=== PATIENT | male | born 1950 | race Caucasian/White ===

== ENCOUNTER 2016-10-04 10:50 | Outpatient (CLI) | payer MEDICARE, OTHER | END 2016-10-04 10:51 | disposition home or self-care (01) | DX: E11.9 Type 2 diabetes mellitus without complications (principal); I10 Essential (primary) hypertension; E78.5 Hyperlipidemia, unspecified ==

== ENCOUNTER 2017-01-13 20:15 | Outpatient (CLI) | payer MEDICARE, OTHER ==
[2017-01-13 19:27] LABS: HEMOGLOBIN A1C 0.74 g/dL
== END 2017-01-13 20:16 | disposition home or self-care (01) ==
LOC: LAB.WCP 20:15
PROVIDERS: ATTEND Family Medicine
DX: E11.9 Type 2 diabetes mellitus without complications (principal)
CPT/HCPCS: 36415; 83036

== ENCOUNTER 2017-05-04 08:00 | Outpatient (CLI) | payer MEDICARE, OTHER ==
[2017-05-04 13:04] LABS: ALBUMIN/GLOBULIN RATIO 1.6 (1.0-2.2); BILIRUBIN,TOTAL 0.6 mg/dL (0.2-1.0); BUN - BLOOD UREA NITROGEN 24 mg/dL (6-20); CALCIUM 9.6 mg/dL (8.5-10.3); CARBON DIOXIDE - CO2 26 mmol/L (21-32); CHLORIDE 104 mmol/L (101-111); CHOL/HDL RATIO 3.7 (<5.0); CHOLESTEROL 146 mg/dL; CREATININE 1.1 mg/dL (0.6-1.2); GFR - MDRD 67 (>89); GLUCOSE 132 mg/dL (70-100); HDL CHOLESTEROL 40 mg/dL; LDL/HDL RATIO 2.1 (<3.6); POTASSIUM 4.5 mmol/L (3.5-5.0); SODIUM 137 mmol/L (135-145); TOTAL PROTEIN 7.6 g/dL (6.7-8.2); TRIGLYCERIDES 122 mg/dL; VLDL CHOLESTEROL 24 mg/dL
[2017-05-04 13:12] LABS: HEMOGLOBIN A1C 0.82 g/dL
== END 2017-05-04 08:01 | disposition home or self-care (01) ==
LOC: LAB.WCP 08:00
PROVIDERS: ATTEND Family Medicine
DX: E11.9 Type 2 diabetes mellitus without complications (principal); Z79.4 Long term (current) use of insulin; Z12.5 Encounter for screening for malignant neoplasm of prostate; I10 Essential (primary) hypertension; E78.5 Hyperlipidemia, unspecified; Z79.899 Other long term (current) drug therapy
CPT/HCPCS: 36415; 80053; 80061; 82043; 83036; G0103; 84153

== ENCOUNTER 2017-09-21 08:00 | Outpatient (CLI) | payer MEDICARE, OTHER ==
[2017-09-21 13:18] LABS: CALCIUM 9.3 mg/dL (8.5-10.3); CREATININE 1.4 mg/dL (0.6-1.2)
[2017-09-21 13:36] LABS: HB2 TOTAL 14.7 g/dL; HEMOGLOBIN A1C 0.77 g/dL; HEMOGLOBIN A1C % 6.9 % (4.6-6.2)
== END 2017-09-21 08:01 ==
LOC: LAB.WCP 08:00
PROVIDERS: ATTEND Family Medicine
DX: E11.9 Type 2 diabetes mellitus without complications (principal); I10 Essential (primary) hypertension
CPT/HCPCS: 36415; 80048; 83036

== ENCOUNTER 2017-10-19 08:00 | Outpatient (CLI) | payer MEDICARE, OTHER ==
[2017-10-19 12:55] LABS: CALCIUM 9.9 mg/dL (8.5-10.3); CREATININE 1.1 mg/dL (0.6-1.2)
== END 2017-10-19 08:01 | disposition home or self-care (01) ==
LOC: LAB.WCP 08:00
PROVIDERS: ATTEND Family Medicine
DX: E11.9 Type 2 diabetes mellitus without complications (principal); I10 Essential (primary) hypertension
CPT/HCPCS: 36415; 80048

== ENCOUNTER 2018-03-21 08:41 | Outpatient (CLI) | payer MEDICARE, OTHER ==
[2018-03-21 12:41] LABS: PSA FREE 0.74 ng/mL (0.16-2.81)
[2018-03-21 12:42] LABS: PSA TOTAL 2.63 ng/mL (0.000-2.000)
[2018-03-21 12:51] LABS: ALBUMIN 4.8 g/dL (3.2-5.5); ALBUMIN/GLOBULIN RATIO 1.5 (1.0-2.2); ALKALINE PHOSPHATASE 32 IU/L (42-121); ALT ALANINE AMINOTRANSFERASE 27 IU/L (10-60); AST ASPARTATE AMINOTRANSFERASE 24 IU/L (10-42); BILIRUBIN,TOTAL 0.7 mg/dL (0.2-1.0); BUN - BLOOD UREA NITROGEN 28 mg/dL (6-20); CALCIUM 10.1 mg/dL (8.5-10.3); CARBON DIOXIDE - CO2 28 mmol/L (21-32); CHLORIDE 103 mmol/L (101-111); CHOL/HDL RATIO 3.9 (<5.0); CHOLESTEROL 158 mg/dL; CREATININE 1.1 mg/dL (0.6-1.2); GFR - MDRD 66 (>89); GLUCOSE 145 mg/dL (70-100); HDL CHOLESTEROL 41 mg/dL; LDL CHOLESTEROL,CALCULATED 93 mg/dL; LDL/HDL RATIO 2.3 (<3.6); SODIUM 139 mmol/L (135-145); TOTAL PROTEIN 7.9 g/dL (6.7-8.2); VLDL CHOLESTEROL 24 mg/dL
[2018-03-21 13:02] LABS: HB2 TOTAL 15.5 g/dL; HEMOGLOBIN A1C 0.82 g/dL
== END 2018-03-21 08:42 | disposition home or self-care (01) ==
LOC: LAB.WCP 08:41
PROVIDERS: ATTEND Family Medicine
DX: N28.9 Disorder of kidney and ureter, unspecified (principal); E78.5 Hyperlipidemia, unspecified; E11.9 Type 2 diabetes mellitus without complications; I10 Essential (primary) hypertension; R97.20 Elevated prostate specific antigen [PSA]
CPT/HCPCS: 36415; 80053; 80061; 82043; 83036; 83721; 84154

== ENCOUNTER 2018-10-04 08:27 | Outpatient (CLI) | payer MEDICARE, OTHER ==
[2018-10-04 15:51] LABS: ALBUMIN 4.6 g/dL (3.2-5.5); ALBUMIN/GLOBULIN RATIO 1.4 (1.0-2.2); BILIRUBIN,TOTAL 0.8 mg/dL (0.2-1.0); CALCIUM 10.2 mg/dL (8.5-10.3); CREATININE 1.1 mg/dL (0.6-1.2); TOTAL PROTEIN 7.9 g/dL (6.7-8.2)
[2018-10-04 15:54] LABS: PSA FREE 0.494 ng/mL (0.16-2.81)
[2018-10-04 15:55] LABS: PSA TOTAL 1.816 ng/mL (0.000-2.000)
[2018-10-04 16:25] LABS: HB2 TOTAL 15.2 g/dL; HEMOGLOBIN A1C 0.91 g/dL; HEMOGLOBIN A1C % 7.6 % (4.6-6.2)
== END 2018-10-04 08:28 | disposition home or self-care (01) ==
LOC: LAB.WCP 08:27
PROVIDERS: ATTEND Family Medicine
DX: G25.0 Essential tremor (principal); E11.9 Type 2 diabetes mellitus without complications; N40.0 Benign prostatic hyperplasia without lower urinary tract symptoms; I10 Essential (primary) hypertension
CPT/HCPCS: 36415; 80053; 82043; 83036; 84153; 84154

== ENCOUNTER 2019-04-18 09:30 | Outpatient (CLI) | payer MEDICARE, OTHER ==
[2019-04-18 12:45] LABS: BASOPHILS % (AUTO) 0.7 %; EOSINOPHILS # (AUTO) 0.2 10^3/uL (0.0-0.7); HGB - HEMOGLOBIN 13.4 g/dL (14.0-18.0); LYMPHOCYTES # (AUTO) 1.4 10^3/uL (1.5-3.5); LYMPHOCYTES % (AUTO) 33.8 %; MEAN CORPUSCULAR HEMOGLOBIN 28.2 pg (27.0-31.0); MEAN CORPUSCULAR HGB CONC 31.5 g/dL (32.0-36.0); MEAN CORPUSCULAR VOLUME 89.7 fL (80.0-94.0); MEAN PLATELET VOLUME 11.5 fL (7.4-11.4); MONOCYTES # (AUTO) 0.3 10^3/uL (0.0-1.0); MONOCYTES % (AUTO) 7.9 %; NEUTROPHILS # (AUTO) 2.2 10^3/uL (1.5-6.6); NEUTROPHILS % (AUTO) 53.4 %; PLT - PLATELET COUNT 192 10^3/uL (130-450); RED BLOOD COUNT 4.75 10^6/uL (4.70-6.10); RED CELL DISTRIBUTION WIDTH 13.5 % (12.0-15.0); WHITE BLOOD COUNT 4.2 x10^3/uL (4.8-10.8)
[2019-04-18 13:00] LABS: ALBUMIN 4.5 g/dL (3.2-5.5); ALBUMIN/GLOBULIN RATIO 1.4 (1.0-2.2); ALKALINE PHOSPHATASE 42 IU/L (42-121); ALT ALANINE AMINOTRANSFERASE 23 IU/L (10-60); AST ASPARTATE AMINOTRANSFERASE 23 IU/L (10-42); BILIRUBIN,TOTAL 0.6 mg/dL (0.2-1.0); BUN - BLOOD UREA NITROGEN 27 mg/dL (6-20); CALCIUM 9.6 mg/dL (8.5-10.3); CARBON DIOXIDE - CO2 28 mmol/L (21-32); CHLORIDE 107 mmol/L (101-111); CHOL/HDL RATIO 3.9 (<5.0); CHOLESTEROL 159 mg/dL; CREATININE 0.9 mg/dL (0.6-1.2); GFR - MDRD 83 (>89); GLUCOSE 150 mg/dL (70-100); HB2 TOTAL 13.9 g/dL; HDL CHOLESTEROL 41 mg/dL; HEMOGLOBIN A1C 0.8 g/dL; HEMOGLOBIN A1C % 7.4 % (4.6-6.2); LDL CHOLESTEROL,CALCULATED 102 mg/dL; LDL/HDL RATIO 2.5 (<3.6); SODIUM 139 mmol/L (135-145); TOTAL PROTEIN 7.7 g/dL (6.7-8.2); VLDL CHOLESTEROL 16 mg/dL
[2019-04-18 13:34] LABS: CREATININE,URINE 56.6 mg/dL
[2019-04-18 13:35] LABS: TOTAL PROTEIN,URINE TIMED < 6 mg/dL
== END 2019-04-18 23:59 | disposition home or self-care (01) ==
LOC: LAB.WCP 09:30
PROVIDERS: ATTEND Family Medicine
DX: E11.9 Type 2 diabetes mellitus without complications (principal); N28.9 Disorder of kidney and ureter, unspecified; E78.5 Hyperlipidemia, unspecified; I10 Essential (primary) hypertension
CPT/HCPCS: 36415; 80053; 80061; 82570; 83036; 83721; 84156; 84443; 85025

== ENCOUNTER 2019-09-27 08:00 | Outpatient (CLI) | payer MEDICARE, OTHER ==
[2019-09-27 11:58] LABS: CREATININE,URINE 111.9 mg/dL; MICROALBUM/CREATININE RATIO,UR 10.7 ug/mg (<30.0); MICROALBUMIN,URINE 1.2 mg/dL (0-300.0)
[2019-09-27 12:02] LABS: CALCIUM 9.2 mg/dL (8.5-10.3); CREATININE 1.2 mg/dL (0.6-1.2)
[2019-09-27 13:10] LABS: HB2 TOTAL 14.6 g/dL; HEMOGLOBIN A1C 0.85 g/dL; HEMOGLOBIN A1C % 7.5 % (4.6-6.2)
== END 2019-09-27 23:59 | disposition home or self-care (01) ==
LOC: LAB.WCP 08:00
PROVIDERS: ATTEND Family Medicine
DX: K58.9 Irritable bowel syndrome, unspecified (principal); E11.9 Type 2 diabetes mellitus without complications; I10 Essential (primary) hypertension; E78.5 Hyperlipidemia, unspecified; N40.0 Benign prostatic hyperplasia without lower urinary tract symptoms
CPT/HCPCS: 36415; 80048; 82043; 82570; 83036

== ENCOUNTER 2020-01-28 08:00 | Outpatient (CLI) | payer MEDICARE, OTHER ==
[2020-01-28 12:10] LABS: BASOPHILS % (AUTO) 0.8 %; EOSINOPHILS # (AUTO) 0.2 10^3/uL (0.0-0.7); EOSINOPHILS % (AUTO) 4.6 %; HGB - HEMOGLOBIN 14.1 g/dL (14.0-18.0); LYMPHOCYTES # (AUTO) 1.6 10^3/uL (1.5-3.5); LYMPHOCYTES % (AUTO) 31.2 %; MEAN CORPUSCULAR HEMOGLOBIN 28.8 pg (27.0-31.0); MEAN CORPUSCULAR HGB CONC 31.8 g/dL (32.0-36.0); MEAN CORPUSCULAR VOLUME 90.6 fL (80.0-94.0); MEAN PLATELET VOLUME 11.7 fL (7.4-11.4); MONOCYTES # (AUTO) 0.4 10^3/uL (0.0-1.0); MONOCYTES % (AUTO) 7.4 %; NEUTROPHILS # (AUTO) 2.8 10^3/uL (1.5-6.6); NEUTROPHILS % (AUTO) 55.8 %; PLT - PLATELET COUNT 161 10^3/uL (130-450); RED CELL DISTRIBUTION WIDTH 12.8 % (12.0-15.0)
[2020-01-28 12:52] LABS: ALBUMIN 4.6 g/dL (3.2-5.5); ALKALINE PHOSPHATASE 39 IU/L (42-121); ALT ALANINE AMINOTRANSFERASE 21 IU/L (10-60); AST ASPARTATE AMINOTRANSFERASE 18 IU/L (10-42); BILIRUBIN,TOTAL 0.6 mg/dL (0.2-1.0); BUN - BLOOD UREA NITROGEN 24 mg/dL (6-20); CALCIUM 9.6 mg/dL (8.5-10.3); CARBON DIOXIDE - CO2 28 mmol/L (21-32); CHLORIDE 104 mmol/L (101-111); CREATININE 0.9 mg/dL (0.6-1.2); GLUCOSE 150 mg/dL (70-100); SODIUM 140 mmol/L (135-145); TOTAL PROTEIN 7.2 g/dL (6.7-8.2)
[2020-01-28 12:53] LABS: ALBUMIN/GLOBULIN RATIO 1.8 (1.0-2.2); CHOL/HDL RATIO 4.5 (<5.0); CHOLESTEROL 156 mg/dL; HB2 TOTAL 15.1 g/dL; HDL CHOLESTEROL 35 mg/dL; HEMOGLOBIN A1C 0.82 g/dL; HEMOGLOBIN A1C % 7.1 % (4.6-6.2); LDL CHOLESTEROL,CALCULATED 78 mg/dL; LDL/HDL RATIO 2.2 (<3.6); VLDL CHOLESTEROL 43 mg/dL
[2020-01-28 12:58] LABS: CREATININE,URINE 142.9 mg/dL; MICROALBUM/CREATININE RATIO,UR 15.4 ug/mg (<30.0); MICROALBUMIN,URINE 2.2 mg/dL (0-300.0)
== END 2020-01-28 23:59 | disposition home or self-care (01) ==
LOC: LAB.WCP 08:00
PROVIDERS: ATTEND Family Medicine
DX: D48.5 Neoplasm of uncertain behavior of skin (principal); E11.9 Type 2 diabetes mellitus without complications
CPT/HCPCS: 36415; 80053; 80061; 82043; 82570; 83036; 83721; 84443; 85025

== ENCOUNTER 2020-07-03 11:16 | Outpatient (CLI) | payer MEDICARE, OTHER ==
--- NOTE | 2020-07-03 17:17 | XRAY Report ---
PROCEDURE: Lumbar Spine Complete INDICATIONS: LOW BACK PAIN TECHNIQUE: 4 views of the lumbar spine were acquired. COMPARISON: None. FINDINGS: Bones: 5 [id number] vertebrae are present. There is trace retrolisthesis of L2 on L3, L3 on L4 , L4-5 and L5 on S1. There is moderate to severe foraminal narrowing at L4-5 and L5-S1. Partially hteresa dging anterior osteophytes are present at L1-L2 as well as L2-3. Mild to moderate multilevel degenera tive disc space narrowing is also present throughout the lumbar spine. No vertebral body compression fractures. No suspicious bony lesions. Soft tissues: Overlying bowel gas pattern is normal. No suspicious soft tissue calcifications. IMPRESSION: Degenerative changes most notable at L4-5 and L5-S1 as above. Reviewed by: Yasmeen Freeman MD on 07/03/2020 5:15 PM PST Approved by: Yasmeen Freeman MD on 07/03/2020 5:15 PM PST Station ID: [id number]
== END 2020-07-03 11:17 | disposition home or self-care (01) ==
LOC: DI 11:16
PROVIDERS: ATTEND Physical Medicine & Rehabilitation
DX: M47.817 Spondylosis without myelopathy or radiculopathy, lumbosacral region (principal)

== ENCOUNTER 2020-07-09 08:00 | Outpatient (CLI) | payer MEDICARE, OTHER ==
[2020-07-09 12:07] LABS: HEMOGLOBIN A1c% 7.3 % (4.27-6.07)
[2020-07-09 12:21] LABS: CALCIUM 10.5 mg/dL (8.5-10.3)
== END 2020-07-09 23:59 | disposition home or self-care (01) ==
LOC: LAB.WCP 08:00
PROVIDERS: ATTEND Nurse Practitioner Family
DX: E11.9 Type 2 diabetes mellitus without complications (principal)
CPT/HCPCS: 36415; 80048; 83036

== ENCOUNTER 2021-02-12 09:56 | Outpatient (CLI) | payer MEDICARE, OTHER ==
[2021-02-12 11:43] LABS: BASOPHILS % (AUTO) 0.7 %; EOSINOPHILS # (AUTO) 0.2 10^3/uL (0.0-0.7); EOSINOPHILS % (AUTO) 4.1 %; HCT - HEMATOCRIT 43.1 % (42.0-52.0); HGB - HEMOGLOBIN 14.1 g/dL (14.0-18.0); LYMPHOCYTES # (AUTO) 1.4 10^3/uL (1.5-3.5); LYMPHOCYTES % (AUTO) 32.9 %; MEAN CORPUSCULAR HGB CONC 32.7 g/dL (32.0-36.0); MEAN CORPUSCULAR VOLUME 91.7 fL (80.0-94.0); MEAN PLATELET VOLUME 11.2 fL (7.4-11.4); MONOCYTES # (AUTO) 0.3 10^3/uL (0.0-1.0); MONOCYTES % (AUTO) 7.7 %; NEUTROPHILS # (AUTO) 2.3 10^3/uL (1.5-6.6); NEUTROPHILS % (AUTO) 54.4 %; PLT - PLATELET COUNT 165 10^3/uL (130-450); RED CELL DISTRIBUTION WIDTH 12.5 % (12.0-15.0); WHITE BLOOD COUNT 4.1 x10^3/uL (4.8-10.8)
[2021-02-12 12:31] LABS: ALBUMIN 4.7 g/dL (3.2-5.5); ALBUMIN/GLOBULIN RATIO 1.6 (1.0-2.2); ALKALINE PHOSPHATASE 48 IU/L (42-121); ALT ALANINE AMINOTRANSFERASE 23 IU/L (10-60); AST ASPARTATE AMINOTRANSFERASE 18 IU/L (10-42); BILIRUBIN,TOTAL 0.9 mg/dL (0.2-1.0); BUN - BLOOD UREA NITROGEN 26 mg/dL (6-20); CALCIUM 9.8 mg/dL (8.5-10.3); CARBON DIOXIDE - CO2 28 mmol/L (21-32); CHLORIDE 104 mmol/L (101-111); CHOL/HDL RATIO 4.4 (<5.0); CHOLESTEROL 181 mg/dL; GFR - MDRD 73 (>89); GLUCOSE 146 mg/dL (70-100); HDL CHOLESTEROL 41 mg/dL; LDL CHOLESTEROL,CALCULATED 110 mg/dL; LDL/HDL RATIO 2.7 (<3.6); POTASSIUM 5.1 mmol/L (3.5-5.0); SODIUM 141 mmol/L (135-145); TOTAL PROTEIN 7.6 g/dL (6.7-8.2); TRIGLYCERIDES 149 mg/dL; VLDL CHOLESTEROL 30 mg/dL
[2021-02-12 12:35] LABS: THYROID STIMULATING HORMONE 0.91 uIU/mL (0.34-5.60)
[2021-02-12 13:02] LABS: ESTIMATED AVERAGE GLUCOSE 163 mg/dL (70-100); HEMOGLOBIN A1c% 7.3 % (4.27-6.07)
== END 2021-02-12 23:59 | disposition home or self-care (01) ==
LOC: LAB.WCP 09:56
PROVIDERS: ATTEND Family Medicine
DX: N28.9 Disorder of kidney and ureter, unspecified (principal); E11.9 Type 2 diabetes mellitus without complications; I10 Essential (primary) hypertension; E78.5 Hyperlipidemia, unspecified
CPT/HCPCS: 36415; 80053; 80061; 83036; 83721; 84443; 85025

== ENCOUNTER 2021-02-24 08:00 | Outpatient (CLI) | payer MEDICARE, OTHER | END 2021-02-24 23:59 | disposition home or self-care (01) | LOC: LAB.S 08:00 | PROVIDERS: ATTEND Family Medicine | DX: R97.20 Elevated prostate specific antigen [PSA] (principal) | CPT/HCPCS: 36415; G0103; 84153 ==

== ENCOUNTER 2021-05-22 06:25 | Day surgery (SDC) | payer MEDICARE, OTHER ==
[2021-05-22] MEDS ORDERED: LACTATED RINGERS 1,000 ML IV ONE ×2 (06:49→08:15)
--- NOTE | 2021-05-22 07:15 | ANESTHESIA ---
Pre-Anesthesia VS, & Labs - Diagnosis screening - Procedure colonoscopy Vital Signs: Temp Pulse Resp BP Pulse Ox 36.2 C L 82 17 146/91 H 97 05/22/21 06:39 05/22/21 06:39 05/22/21 06:39 05/22/21 06:39 05/22/21 06:39 Height: 6 ft 3 in Weight (kg): 96.4 kg Body Mass Index: 26.5 BMI Classification: Overweight - NPO >8 hours - Lab Results Current Lab Results: Laboratory Tests 05/22/21 06:47: POC Whole Bld Glucose 139 H Lab results reviewed: Yes Home Medications and Allergies Home Medications: Ambulatory Orders Aspirin [Opelika Aspirin] 1 tab PO DAILY 05/21/21 Cholecalciferol (Vitamin D3) [Vitamin D3] 1 cap PO DAILY 05/21/21 Insulin Aspart [NovoLOG] 1 unit SQ PRN PRN 05/21/21 Insulin Glargine [Lantus Solostar] 50 units SQ DAILY 05/21/21 Lisinopril [Zestril] 1 tab PO DAILY 05/21/21 Simvastatin [Zocor] 0.5 tab PO DAILY 05/21/21 Tamsulosin [Flomax] 1 cap PO DAILY 05/21/21 Ubidecarenone [Co Q-10] 1 cap PO DAILY 05/21/21 metFORMIN [Glucophage] 3 tab PO DAILY 05/21/21 Aspirin [Opelika Aspirin] 1 tab PO DAILY 05/21/21 Cholecalciferol (Vitamin D3) [Vitamin D3] 1 cap PO DAILY 05/21/21 Insulin Aspart [NovoLOG] 1 unit SQ PRN PRN 05/21/21 Insulin Glargine [Lantus Solostar] 50 units SQ DAILY 05/21/21 Lisinopril [Zestril] 1 tab PO DAILY 05/21/21 Simvastatin [Zocor] 0.5 tab PO DAILY 05/21/21 Tamsulosin [Flomax] 1 cap PO DAILY 05/21/21 Ubidecarenone [Co Q-10] 1 cap PO DAILY 05/21/21 metFORMIN [Glucophage] 3 tab PO DAILY 05/21/21 Anes History & Medical History - Anesthetic History Anesthesia Complications: reports: No previous complications Family history of Anesthesia Complications: Denies Family history of Malignant Hyperthermia: Denies - Medical History Cardiovascular: reports: High cholesterol Pulmonary: reports: None Gastrointestinal: reports: None Urinary: reports: Benign prostate hypertrophy, Incontinence Musculoskeletal: reports: Chronic back pain Endocrine/Autoimmune: reports: Type 2 diabetes Skin: reports: None - Surgical History Eyes Ears Nose Throat (EENT): reports: Tonsil/Adenoidectomy Orthopedic: reports: Other Exam General: Alert, Oriented x3, Cooperative Dental: Partials Upper, Partials Lower Mouth Opening: Greater than 4 Fingerbreadths Neck Mobility: Normal Mallampati classification: II Thyromental Distance: 4-6 cm Respiratory: Lungs clear, Normal breath sounds, No respiratory distress Cardiovascular: Regular rate Mental/Cognitive Status: Alert/Oriented X3, Normal for patient Cognitive Status: Within normal limits Plan Anesthesia Type: Total IV Consent for Procedure(s) Verified and Reviewed: Yes Code Status: Attempt Resuscitation ASA classification: 2-Mild systemic disease Is this case an emergency?: No
[2021-05-22] MEDS ORDERED: LIDOCAINE-MPF 2% 5 ML VIAL ONE (07:19)
[2021-05-22] MEDS ORDERED: PROPOFOL 500 MG/50 ML 500 MG/50 ML VIAL ONE (07:19)
[2021-05-22 08:34] VITALS: BP 116/68
--- NOTE | 2021-05-22 09:14 | ANESTHESIA POST OP EVALUATION ---
Anesthesia Post Eval - Post Anesthesia Eval Vitals: Last Vital Signs Temp 36.2 C L 05/22/21 08:34 Pulse 69 05/22/21 08:34 Resp 13 05/22/21 08:34 BP 116/68 05/22/21 08:34 Pulse Ox 97 05/22/21 08:34 CV Function Including HR & BP: Stable Pain Control: Satisfactory Nausea & Vomiting: Negative Mental Status: Baseline Respiratory Status: Airway Patent Hydration Status: Satisfactory Anesthesia Complications: None
== END 2021-05-22 06:26 | disposition home or self-care (01) ==
LOC: SDS 06:25
PROVIDERS: ATTEND Surgery
PROC: 0DBM8ZZ Excision of Descending Colon, Via Natural or Artificial Opening Endoscopic (ICD-10-PCS; 2021-05-22)
PROC: 0DBN8ZZ Excision of Sigmoid Colon, Via Natural or Artificial Opening Endoscopic (ICD-10-PCS; principal; 2021-05-22 07:30)
DX: Z12.11 Encounter for screening for malignant neoplasm of colon (principal); D12.7 Benign neoplasm of rectosigmoid junction; D12.4 Benign neoplasm of descending colon; N40.1 Benign prostatic hyperplasia with lower urinary tract symptoms; N39.498 Other specified urinary incontinence
CPT/HCPCS: 45380; 45385; J7120

== ENCOUNTER 2021-09-28 08:45 | Outpatient (CLI) | payer MEDICARE, OTHER ==
[2021-09-28 12:24] LABS: BASOPHILS % (AUTO) 0.7 %; EOSINOPHILS # (AUTO) 0.2 10^3/uL (0.0-0.7); EOSINOPHILS % (AUTO) 4.3 %; HCT - HEMATOCRIT 43.7 % (42.0-52.0); LYMPHOCYTES # (AUTO) 1.3 10^3/uL (1.5-3.5); MEAN CORPUSCULAR HEMOGLOBIN 28.9 pg (27.0-31.0); MEAN CORPUSCULAR VOLUME 90.1 fL (80.0-94.0); MEAN PLATELET VOLUME 11.5 fL (7.4-11.4); MONOCYTES # (AUTO) 0.3 10^3/uL (0.0-1.0); MONOCYTES % (AUTO) 7.5 %; NEUTROPHILS # (AUTO) 2.3 10^3/uL (1.5-6.6); PLT - PLATELET COUNT 178 10^3/uL (130-450); RED BLOOD COUNT 4.85 10^6/uL (4.70-6.10); RED CELL DISTRIBUTION WIDTH 13.2 % (12.0-15.0); WHITE BLOOD COUNT 4.2 x10^3/uL (4.8-10.8)
[2021-09-28 12:45] LABS: ALBUMIN 4.5 g/dL (3.2-5.5); ALBUMIN/GLOBULIN RATIO 1.4 (1.0-2.2); ALKALINE PHOSPHATASE 50 IU/L (42-121); ALT ALANINE AMINOTRANSFERASE 21 IU/L (10-60); AST ASPARTATE AMINOTRANSFERASE 19 IU/L (10-42); BILIRUBIN,TOTAL 0.8 mg/dL (0.2-1.0); BUN - BLOOD UREA NITROGEN 21 mg/dL (6-20); CALCIUM 9.6 mg/dL (8.5-10.3); CARBON DIOXIDE - CO2 27 mmol/L (21-32); CHLORIDE 103 mmol/L (101-111); CHOL/HDL RATIO 4.2 (<5.0); CHOLESTEROL 172 mg/dL; CREATININE 0.8 mg/dL (0.6-1.2); GFR - MDRD 95 (>89); GLUCOSE 174 mg/dL (70-100); HDL CHOLESTEROL 41 mg/dL; LDL CHOLESTEROL,CALCULATED 101 mg/dL; LDL/HDL RATIO 2.5 (<3.6); POTASSIUM 4.8 mmol/L (3.5-5.0); SODIUM 138 mmol/L (135-145); TOTAL PROTEIN 7.7 g/dL (6.7-8.2); TRIGLYCERIDES 151 mg/dL; VLDL CHOLESTEROL 30 mg/dL
== END 2021-09-28 08:46 | disposition home or self-care (01) ==
LOC: LAB.N 08:45
PROVIDERS: ATTEND Family Medicine
DX: E11.39 Type 2 diabetes mellitus with other diabetic ophthalmic complication (principal)
CPT/HCPCS: 36415; 80053; 80061; 81599; 83036; 83721; 85025

== ENCOUNTER 2022-10-27 08:00 | Outpatient (CLI) | payer MEDICARE, OTHER ==
[2022-10-27 11:46] LABS: BASOPHILS % (AUTO) 0.4 %; EOSINOPHILS # (AUTO) 0.3 10^3/uL (0.0-0.7); EOSINOPHILS % (AUTO) 6.8 %; HCT - HEMATOCRIT 43.8 % (42.0-52.0); LYMPHOCYTES # (AUTO) 1.4 10^3/uL (1.5-3.5); LYMPHOCYTES % (AUTO) 30.3 %; MEAN CORPUSCULAR VOLUME 90.7 fL (80.0-94.0); MEAN PLATELET VOLUME 11.5 fL (7.4-11.4); MONOCYTES # (AUTO) 0.4 10^3/uL (0.0-1.0); MONOCYTES % (AUTO) 8.9 %; NEUTROPHILS # (AUTO) 2.5 10^3/uL (1.5-6.6); NEUTROPHILS % (AUTO) 53.4 %; PLT - PLATELET COUNT 194 10^3/uL (130-450); RED BLOOD COUNT 4.83 10^6/uL (4.70-6.10); RED CELL DISTRIBUTION WIDTH 13.2 % (12.0-15.0); WHITE BLOOD COUNT 4.7 x10^3/uL (4.8-10.8)
[2022-10-27 12:49] LABS: THYROID STIMULATING HORMONE 1.06 uIU/mL (0.34-5.60)
[2022-10-27 12:50] LABS: ALBUMIN 4.6 g/dL (3.2-5.5); ALBUMIN/GLOBULIN RATIO 1.5 (1.0-2.2); ALKALINE PHOSPHATASE 52 IU/L (42-121); ALT ALANINE AMINOTRANSFERASE 20 IU/L (10-60); AST ASPARTATE AMINOTRANSFERASE 16 IU/L (10-42); BILIRUBIN,TOTAL 0.9 mg/dL (0.2-1.0); BUN - BLOOD UREA NITROGEN 34 mg/dL (6-20); CALCIUM 9.4 mg/dL (8.5-10.3); CARBON DIOXIDE - CO2 27 mmol/L (21-32); CHLORIDE 107 mmol/L (101-111); CHOL/HDL RATIO 4.9 (<5.0); CHOLESTEROL 185 mg/dL; CREATININE 1.1 mg/dL (0.6-1.2); GFR - MDRD 65 (>89); GLUCOSE 141 mg/dL (70-100); HDL CHOLESTEROL 38 mg/dL; LDL CHOLESTEROL,CALCULATED 97 mg/dL; LDL/HDL RATIO 2.6 (<3.6); POTASSIUM 4.8 mmol/L (3.5-5.0); SODIUM 138 mmol/L (135-145); TOTAL PROTEIN 7.6 g/dL (6.7-8.2); TRIGLYCERIDES 248 mg/dL; VLDL CHOLESTEROL 50 mg/dL
[2022-10-27 12:55] LABS: MICROALBUM/CREATININE RATIO,UR 28.6 ug/mg (<30.0); MICROALBUMIN,URINE 1.4 mg/dL (0-300.0)
[2022-10-27 17:09] LABS: ESTIMATED AVERAGE GLUCOSE 186 mg/dL (70-100); HEMOGLOBIN A1c% 8.1 % (4.27-6.07)
== END 2022-10-27 23:59 | disposition home or self-care (01) ==
LOC: LAB.N 08:00
PROVIDERS: ATTEND Nurse Practitioner
DX: E78.5 Hyperlipidemia, unspecified (principal); E11.42 Type 2 diabetes mellitus with diabetic polyneuropathy; R97.20 Elevated prostate specific antigen [PSA]; E11.39 Type 2 diabetes mellitus with other diabetic ophthalmic complication; G25.0 Essential tremor; R53.83 Other fatigue
CPT/HCPCS: 36415; 80053; 80061; 82043; 82570; 82607; 83036; 83721; 84153; 84443; 85025

== ENCOUNTER 2023-01-28 09:12 | Outpatient (CLI) | payer MEDICARE, OTHER ==
[2023-01-28 13:01] LABS: ESTIMATED AVERAGE GLUCOSE 171 mg/dL (70-100); HEMOGLOBIN A1c% 7.6 % (4.27-6.07)
== END 2023-01-28 09:13 | disposition home or self-care (01) ==
LOC: LAB.N 09:12
PROVIDERS: ATTEND Nurse Practitioner
DX: E11.9 Type 2 diabetes mellitus without complications (principal)
CPT/HCPCS: 36415; 83036

== ENCOUNTER 2023-04-30 09:16 | Outpatient (CLI) | payer MEDICARE, OTHER ==
[2023-04-30 19:35] LABS: CALCIUM 9.4 mg/dL (8.5-10.3); CREATININE 1.2 mg/dL (0.6-1.3); POTASSIUM 4.9 mmol/L (3.5-4.5)
[2023-04-30 19:42] LABS: CREATININE,URINE 75.4 mg/dL; MICROALBUM/CREATININE RATIO,UR 29.2 ug/mg (<30.0); MICROALBUMIN,URINE 2.2 mg/dL
[2023-04-30 21:18] LABS: ESTIMATED AVERAGE GLUCOSE 163 mg/dL (70-100); HEMOGLOBIN A1c% 7.3 % (4.27-6.07)
== END 2023-04-30 09:17 | disposition home or self-care (01) ==
LOC: LAB.N 09:16
PROVIDERS: ATTEND Nurse Practitioner
DX: E11.9 Type 2 diabetes mellitus without complications (principal)
CPT/HCPCS: 36415; 80048; 82043; 82570; 83036

== ENCOUNTER 2023-09-21 09:12 | Outpatient (CLI) | payer MEDICARE, OTHER ==
[2023-09-21 12:25] LABS: ALBUMIN 4.4 g/dL (3.2-5.5); ALBUMIN/GLOBULIN RATIO 1.3 (1.0-2.2); BILIRUBIN,TOTAL 0.7 mg/dL (0.2-1.0); CALCIUM 10.2 mg/dL (8.5-10.3); CREATININE 1.2 mg/dL (0.6-1.3); POTASSIUM 4.6 mmol/L (3.5-4.5); TOTAL PROTEIN 7.9 g/dL (6.4-8.9)
[2023-09-21 12:28] LABS: ESTIMATED AVERAGE GLUCOSE 146 mg/dL (70-100); HEMOGLOBIN A1c% 6.7 % (4.27-6.07)
== END 2023-09-21 09:13 | disposition home or self-care (01) ==
LOC: LAB.N 09:12
PROVIDERS: ATTEND Nurse Practitioner
DX: E11.9 Type 2 diabetes mellitus without complications (principal)
CPT/HCPCS: 36415; 80053; 83036